=== PATIENT | female | born 1995 | race Caucasian/White ===

== ENCOUNTER 2024-12-28 19:48 | Emergency (ER) | payer BC ==
[2024-12-28 19:55] VITALS: BP 116/68; PULSE 82; RESP 20; TEMP 98.5; BMI 27.3
[2024-12-28] MEDS: KETOROLAC TROMETHAMINE 30 MG/1 ML VIAL IM ONE (20:40)
[2024-12-28] MEDS: ACETAMINOPHEN 500 MG TABLET (FP) PO ONE (20:41)
== END 2024-12-28 20:41 | disposition home or self-care (01) ==
LOC: JER 19:48
PROC: 3E0233Z Introduction of Anti-inflammatory into Muscle, Percutaneous Approach (ICD-10-PCS; principal; 2024-12-28)
DX: S00.03XA Contusion of scalp, initial encounter (principal); W10.9XXA Fall (on) (from) unspecified stairs and steps, initial encounter; Y92.009 Unspecified place in unspecified non-institutional (private) residence as the place of occurrence of the external cause
CPT/HCPCS: 99284-25